=== PATIENT | female | born 1960 | race Caucasian/White ===

== ENCOUNTER 2020-09-14 21:26 | Emergency (ER) | payer MEDICARE, SELFPAY ==
--- NOTE | ~2020-09-14 | CT_ITS ---
EXAMINATION: CT abdomen pelvis w con INDICATION: Pain at the PEG tube site TECHNIQUE: Computed tomographic images of the abdomen and pelvis were obtained after the administrati on of 100 cc of Omnipaque 350 intravenous contrast. The dose-length product (DLP) was 296.38 mGy-cm. Automated exposure control and iterative reconstruction technique were employed. COMPARISON: None available FINDINGS: There is emphysema of the visualized lung bases. The heart size is normal. Mild atelectasis is present in the lower lobes. A percutaneous gastrostomy ends in the stomach. No fluid or inflammat ory change is seen surrounding the gastrostomy or tract. The liver, spleen, pancreas, and gallbladder are normal. There is a 2 cm mass of the right adrenal gland. The left adrenal gland is unremarkable. A 4 mm hypoattenuating lesion of the right kidney is too small to characterize but likely represents a cyst. The left kidney is unremarkable. There is calcified atherosclerosis of the aorta and many of the other arteries. No pathologically enlarged abdominal or pelvic lymph nodes are identified. There is no free intraperitoneal gas or evidence of bowel obstruction. A large volume of colonic stool is present. The appendix is normal. There is moderate lumbar spondylosis. IMPRESSION: 1. Unremarkable PEG tube and PEG site. 2. 2 cm right adrenal mass, probably benign in the absence of known malignancy. Follow-up adrenal pro tocol CT or MRI in 12 months is recommended. Reviewed, dictated and finalized at location B. IMPRESSION: 1. Unremarkable PEG tube and PEG site. 2. 2 cm right adrenal mass, probably benign in the absence of known malignancy. Follow-up adrenal protocol CT or MRI in 12 months is recommended.
[2020-09-14 20:42] VITALS: BP 120/70; PULSE 78; RESP 18; TEMP 37; O2SAT 97
[2020-09-14 21:51] LABS: Basophils Absolute Auto 0.1 K/mm3 (0.0-0.1); Basophils Percent Auto 0.5 % (0.2-1.2); Eosinophils Absolute Auto 0.3 K/mm3 (0-0.3); Eosinophils Percent Auto 2.5 % (0-4.4); Hematocrit 28.3 % (37.0-47.0); Hemoglobin 8.8 g/dL (12.0-15.0); Immature Granulocyte Absolute 0.04 K/mm3 (0.00-0.031); Immature Granulocyte Percent A 0.3 % (0-0.5); Lymphocytes Absolute Auto 2.78 K/mm3 (0.9-3.2); Lymphocytes Percent Auto 24.2 % (18.3-44.2); Mean Corpuscular HGB Conc 31.1 g/dl (32-36); Mean Corpuscular Hemoglobin 31.2 pg (26-34); Mean Corpuscular Volume 100.4 fl (80-100); Mean Platelet Volume 9.1 fl (7.4-10.4); Monocytes Percent Auto 8.7 % (2.6-8.5); Neutrophils Absolute Auto 7.3 K/mm3 (1.3-6.7); Neutrophils Percent Auto 63.8 % (45.5-73.1); Platelet Count Result 422 k/mm3 (150-375); Red Blood Count 2.82 M/mm3 (4.2-5.4); Red Cell Distribution Width 19.8 % (11.5-14.5); White Blood Count 11.5 K/mm3 (4.5-10.0)
[2020-09-14 22:00] LABS: Alanine Aminotransferase 17 U/L (4-35); Albumin Level 3.2 g/dL (3.5-5.1); Alkaline Phosphatase 48 U/L (38-126); Anion Gap 8 mmol/L (8-16); Aspartate Amino Transferase 34 U/L (14-36); Bilirubin,Total 0.3 mg/dL (0.2-1.3); Blood Urea Nitrogen 9 mg/dL (7-17); Calcium 8.8 mg/dL (8.4-10.2); Carbon Dioxide 21 mmol/L (22-30); Chloride 108 mmol/L (98-107); Estimated CRCL calculation 92 ml/min; Estimated Glomerular Filt Rate > 60; Glucose 96 mg/dL (65-110); Lipase 283 U/L (23-300); Potassium 3.8 mmol/L (3.4-5.0); Sodium 137 mmol/L (137-145)
--- NOTE | 2020-09-14 22:27 | ED.GENADULT ---
HPI - General Adult General Chief complaint: Abdominal Pain Stated complaint: pain around peg tube Time Seen by Provider: 09/14/20 21:32 History of Present Illness HPI narrative: Patient 60-year-old female presents the emergency department with chief complaint of abdominal pain. Patient reports that she was discharged from [facility] and while she was in [facility] they placed a PEG tube and her left side of her abdomen. Patient states she noticed it was a little red and has been a little uncomfortable the patient states that there is actually not really bothering her that much and the patient reports that she had told her staff at the facility where she is currently living it and they had sent the patient to the emergency department for evaluation. The patient denies nausea vomiting denies fever denies purulent drainage from the site. Related Data Allergies Allergy/AdvReac Type Severity Reaction Status Date / Time adhesive tape AdvReac Other Verified 09/14/20 20:53 Review of Systems Review of Systems: Narrative: A 10 system review of systems was completed on the patient and is negative except for what is stated in the HPI. Nursing and ancillary documentation was reviewed. Exam Narrative: Exam Narrative: GENERAL: Well-appearing, well-nourished, and in no acute distress. HEAD: Normocephalic, atraumatic. EYES: PERRLA and EOMI. ENT: Nares clear, no rhinorrhea or epistaxis. Mucous membranes moist. NECK: Supple. CHEST: Clear to auscultation. No respiratory distress. HEART: Regular rate and rhythm. No murmur heard. Normal peripheral pulses. ABDOMEN: Soft, minimal tenderness present around the PEG tube site. There is a PEG tube in place there is slight erythema at the insertion site but no significant erythema or streaking presents, nondistended, normal active bowel sounds. EXTREMITIES: Normal range of motion. No edema. SKIN: Warm, dry, no rash. NEURO: No focal deficits. Alert and oriented x3. PSYCH: Normal mood and affect. Course Vital Signs Vital signs: Vital Signs Temperature 37.0 C 09/14/20 20:42 Pulse Rate 78 09/14/20 20:42 Respiratory Rate 18 09/14/20 20:42 Blood Pressure 120/70 09/14/20 20:42 Pulse Oximetry 97 09/14/20 20:42 Temperature 37.0 C 09/14/20 20:42 Pulse Rate 86 09/14/20 22:45 Respiratory Rate 18 09/14/20 22:45 Blood Pressure 122/74 09/14/20 22:45 Pulse Oximetry 96 09/14/20 22:45 Medical Decision Making Vital Signs Vital Signs: Vital Signs Temperature 37.0 C 09/14/20 20:42 Pulse Rate 78 09/14/20 20:42 Respiratory Rate 18 09/14/20 20:42 Blood Pressure 120/70 09/14/20 20:42 Pulse Oximetry 97 09/14/20 20:42 Temperature 37.0 C 09/14/20 20:42 Pulse Rate 86 09/14/20 22:45 Respiratory Rate 18 09/14/20 22:45 Blood Pressure 122/74 09/14/20 22:45 Pulse Oximetry 96 09/14/20 22:45 Lab Data Result diagrams: 09/14/20 21:46 09/14/20 21:46 Labs: Lab Results 09/14/20 09/14/20 Range/Units 21:46 21:46 WBC 11.5 H (4.5-10.0) K/mm3 RBC 2.82 L (4.2-5.4) M/mm3 Hgb 8.8 L (12.0-15.0) g/dL Hct 28.3 L (37.0-47.0) % MCV 100.4 H (80-100) fl MCH 31.2 (26-34) pg MCHC 31.1 L (32-36) g/dl RDW 19.8 H (11.5-14.5) % Plt Count 422 H (150-375) k/mm3 MPV 9.1 (7.4-10.4) fl Immature Gran % (Auto) 0.3 (0-0.5) % Neut % (Auto) 63.8 (45.5-73.1) % Lymph % (Auto) 24.2 (18.3-44.2) % [place] % (Auto) 8.7 H (2.6-8.5) % Eos % (Auto) 2.5 (0-4.4) % Baso % (Auto) 0.5 (0.2-1.2) % Lymph # (Auto) 2.78 (0.9-3.2) K/mm3 [place] # (Auto) 1.0 H (0.1-0.6) K/mm3 Eos # (Auto) 0.3 (0-0.3) K/mm3 Baso # (Auto) 0.1 (0.0-0.1) K/mm3 Abs Immat Gran (auto) 0.04 H (0.00-0.031) K/mm3 Absolute Neuts (auto) 7.3 H (1.3-6.7) K/mm3 Absolute Nucleated RBC 0.0 (0.0-0.012) K/mm3 Nucleated RBC % 0.0 (0.0-0.2) % Sodium 137 (137-145) mmol/L Potassium 3.8 (3.
[2020-09-14 22:45] VITALS: BP 122/74; PULSE 86; RESP 18; O2SAT 96
--- NOTE | 2020-09-15 00:52 | PC.NURSE ---
called [facility] to request transport. ETA 20 minutes.
--- NOTE | 2020-09-15 01:12 | PC.NURSE ---
[facility] here.
[2020-09-15 01:17] VITALS: BP 126/74; PULSE 88; RESP 18; O2SAT 96
== END 2020-09-15 01:18 ==
PROVIDERS: Emergency Provider Emergency Medicine; PCP Family Medicine
DX: R10.84 Generalized abdominal pain (principal); E27.8 Other specified disorders of adrenal gland
CPT/HCPCS: 36415; 74177; 80053; 83690; 85025; 99284; Q9967

== ENCOUNTER 2020-12-08 15:20 | Outpatient (RCR) | payer MEDICARE, SELFPAY ==
--- NOTE | 2020-12-08 16:34 | REHOPWC ---
SEATING EVALUATION NOTIFICATION Re: Jill Armstrong ; 1960 This is to notify provider that Jill Armstrong participated in a power mobility device evaluation today. Recommendations were made specific to patient's needs. Seating Assessment documentation has been completed for detailed information on required equipment. The mobility device provider for this case is Alex. Please note that no further care plan will be developed on this account. Thank you for referring this [facility] to [facility]. Please review, sign, date and return this discharge summary OLIVIA. I have been updated about the patient's current status and I agree with discharge from the above service at this time. Referring Physician Date
== END 2020-12-09 08:56 | disposition home or self-care (01) ==
LOC: ANHPT 15:20
PROVIDERS: PCP Family Medicine; Visit Provider Family Medicine
DX: Z46.89 Encounter for fitting and adjustment of other specified devices (principal); C34.90 Malignant neoplasm of unspecified part of unspecified bronchus or lung; J44.9 Chronic obstructive pulmonary disease, unspecified; R53.1 Weakness
CPT/HCPCS: 97163